=== PATIENT | male | born 1980 | race American Indian/Alaskan Native ===

== ENCOUNTER 2016-09-18 01:13 | Emergency (ER) | payer OTHER ==
[2016-09-18 01:28] VITALS: RESP 17; TEMP 97.6
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
[2016-09-18 01:33] VITALS: BMI 29.6
[2016-09-18 02:54] VITALS: BP 130/85; PULSE 75; O2SAT 99
--- NOTE | 2016-09-18 12:19 | RAD ---
PROCEDURE: Radiographs of the Right Shoulder HISTORY: pain COMPARISON: No prior. FINDINGS: BONES: Normal. No fracture. JOINTS: Normal. Glenohumeral and acromioclavicular joints preserved. No osteoarthritis. SOFT TISSUES: Normal. OTHER FINDINGS: None. IMPRESSION: Normal radiographs of the right shoulder.
== END 2016-09-18 03:01 | disposition home or self-care (01) ==
LOC: ED 01:13
DX: M25.511 Pain in right shoulder (principal)
CPT/HCPCS: 73030; 96372; 99284; J1885